=== PATIENT | female | born 1935 | race Caucasian/White ===

== ENCOUNTER 2017-03-26 18:10 | Emergency (ER) | payer MEDICARE ==
--- NOTE | 2017-03-26 18:28 | ERPHSYRPT ---
- History of Present Illness Time Seen by Provider: 03/26/17 18:24 Historian: patient Physician History: 82-year-old white female with history of high blood pressure, gallbladder disease, hernia, pancreatitis arrives with complaints that off-and-on of pain in the substernal region described as a feeling of nervousness and shortness of breath in that area symptoms for 2 weeks off and on also nausea and diaphoresis this has been intermittent she states that has been going on today since around 11 to 12:00 Patient does state she's been short of breath. Patient was brought from the assisted by medics she was given aspirin and nitroglycerin. Past medical history includes high blood pressure, gallbladder disease, pancreatitis, patient apparently with a a ruptured bowel and had a colostomy with revision. Past surgical history includes cholecystectomy stone removed from biliary doctor, colostomy with revision. Timing/Duration: week(s) (symptoms for 2-3 weeks symptoms today since 11 or 12: 00) Activities at Onset: none Quality: other (patient states she just feels "nervous" in the substernal areabecome short of breath) Location: substernal Chest Pain Radiation: no radiation Severity of Pain-Max: moderate Associated Symptoms: nausea, diaphoresis, No vomiting, No palpitations, No heartburn, No abdominal pain, No cough, No hurts to breathe, No chills, No fever , No fatigue, No weakness, No swelling/lump in chest, No syncope, No rash, No headache, No dizziness, No edema, No back pain Nitro Today/Relief: 0.4 mg x 3 Aspirin Treatment Today: 81 mg x 4, provided by EMS Allergies/Adverse Reactions: acetaminophen [From Darvocet-N 100] Allergy (Verified 03/26/17 18:35) propoxyphene napsylate [From Darvocet-N 100] Allergy (Verified 03/26/17 18:35) Home Medications: Aspirin [[place] Aspirin] 81 mg PO DAILY 03/26/17 [History] Cephalexin Mh 500 mg [Keflex 500 mg] 500 mg PO TID 03/26/17 [History] Docusate Sodium 100 mg [Colace 100 MG] 100 mg PO BID 03/26/17 [History] Estradiol [Vagifem] 10 mcg VG DAILY 03/26/17 [History] Hydrochlorothiazide 12.5 mg PO BID 03/26/17 [History] Metoprolol Tartrate 25 mg [Lopressor 25MG Tab] 25 mg PO DAILY 03/26/17 [ History] Omeprazole 20 MG [Prilosec 20 mg] 20 mg PO DAILY 03/26/17 [History] Potassium Chloride 10 Meq Tab* [Klor Con 10 MEQ] 10 meq PO DAILY 03/26/17 [ History] Prednisone 12.5 mg PO DAILY 03/26/17 [History] Rivaroxaban [Xarelto] 15 mg PO BID 03/26/17 [History] Hx Tetanus, Diphtheria Vaccination/Date Given: No Hx Influenza Vaccination/Date Given: Yes (2013) Hx Pneumococcal Vaccination/Date Given: No - Review of Systems Constitutional: No Fever, No Chills Eyes: No Symptoms Ears, Nose, & Throat: No Symptoms Respiratory: Dyspnea, No Cough, No Cyanosis, No Dyspnea on Exertion (HERNANDEZ), No Stridor, No Wheezing Cardiac: Chest Pain, No Edema, No Palpitations, No Syncope, No Orthopnea Abdominal/Gastrointestinal: Nausea, No Abdominal Pain, No Vomiting, No Diarrhea , No Constipation, No Hematemesis, No Hematochezia, No Melena, No Dysphagia, No Appetite Changes Genitourinary Symptoms: No Dysuria Musculoskeletal: No Back Pain, No Neck Pain Skin: No Rash Neurological: No Dizziness, No Focal Weakness, No Sensory Changes Psychological: No Symptoms Endocrine: No Symptoms All Other Systems: Reviewed and Negative - Past Medical History Pertinent Past Medical History: Yes Cardiac History: Hypertension GI Medical History: Gallbladder Disease, Hernia, Pancreatitis Psycho-Social History: Anxiety - Past Surgical History Past Surgical History: Yes Gastrointestinal: Cholecystectomy Female Surgical History: Section Other Surgical History: STONE REMOVED FROM DUCT - Social History Smoking Status: Former smoker Exposure to second hand smoke: No Drug Use: none Patient Lives Alone: Yes - Physical Exam General Appearance: no apparent distress, alert Eye Exam: PERRL/EOMI, eyes nml inspection Ears, Nose, Throat Exam: normal ENT inspection, moist mucous membranes Neck Exam: normal inspection, non-tender, supple, full range of motion Respiratory Exam: normal breath sounds, lungs clear, No respiratory distress Cardiovascular Exam: regular rate/rhythm, normal heart sounds Gastrointestinal/Abdomen Exam: soft, No tenderness, No mass Back Exam: normal inspection, No CVA tenderness, No vertebral tenderness Extremity Exam: normal inspection, normal range of motion Neurologic Exam: alert, oriented x 3, cooperative, normal mood/affect, sensation nml, No motor deficits Skin Exam: normal color (is documented in the back and off foay with), warm, dry SpO2 Interpretation: normal (this is a never EKG [id number] - Course Nursing assessment & vital signs reviewed: Yes EKG Interpreted by Me: RATE (100 bpm), Sinus Rhythm, NORMAL AXIS, Other (EKG, normal sinus rhythm 100 bpm, normal axis, no acute ST or T wave changes noted compared to July) - Radiology Exams Chest X-ray Interpretation: Interpreted by me, Negative, Other (no acute disease process) Ordered Tests: Active Orders 24 hr Category Date Time Status Plant Electrical Engineer STAT Care 03/26/17 18:29 Active EKG-ER Only STAT Care 03/26/17 18:29 Active IV Insertion STAT Care 03/26/17 18:29 Active IV Insertion-2nd Peripheral STAT Care 03/26/17 20:53 Active Oxygen-ED Only NASAL CANNULA 2 lpm Care 03/26/17 18:29 Active CHEST 1 VIEW (PORTABLE) Stat Exams 03/26/17 18:29 Taken AMYLASE Stat Lab 03/26/17 18:45 Completed CBC W DIFF Stat Lab 03/26/17 18:45 Completed CMP Stat Lab 03/26/17 18:45 Completed D-DIMER QUANTITATION Stat Lab 03/26/17 18:45 Completed LIPASE Stat Lab 03/26/17 18:45 Completed NT PRO BNP Stat Lab 03/26/17 18:45 Completed PROTIME WITH INR Stat Lab 03/26/17 18:45 Completed PTT Stat Lab 03/26/17 18:45 Completed TROPONIN Q3H Lab 03/26/17 18:45 Completed TROPONIN Q3H Lab 03/26/17 21:30 Ordered TROPONIN Q3H Lab 03/27/17 00:30 Ordered TROPONIN Q3H Lab 03/27/17 03:30 Ordered TROPONIN Q3H Lab 03/27/17 06:30 Ordered Medication Summary Generic Name Dose Route Start Last Admin Trade Name Freq PRN Reason Stop Dose Admin Sodium Chloride 1,000 mls @ 100 mls/hr 03/26/17 20:45 03/26/17 20:51 Sodium Chloride 0.9% 1000 Ml IV 04/25/17 20:44 100 mls/hr .Q10H LEI Administration Lab/Rad Data: Laboratory Result Diagrams 03/26/17 18:45 03/26/17 18:45 Laboratory Results 03/26/17 03/26/17 03/26/17 Range/Units 18:45 18:45 18:45 WBC (4.0-10.5) K/mm3 RBC (4.1-5.4) M/mm3 Hgb (12.0-16.0) gm/dl Hct (35-47) % MCV (78-100) fl MCH (26-32) pg MCHC (32-36) g/dl RDW (11.5-14.0) % Plt Count (150-450) K/mm3 MPV (6-9.5) fl Gran % (36.0-66.0) % Lymphocytes % (24.0-44.0) % Monocytes % (0.0-12.0) % Eosinophils % (0.00-5.0) % Basophils % (0.0-0.4) % Basophils # (0-0.4) INR (0.8-3.0) APTT (25.3-37.0) SECONDS D-Dimer (0.00-0.49) mg/L Sodium (136-145) mEq/L Potassium (3.5-5.1) mEq/L Chloride (98-107) mEq/L Carbon Dioxide (21-32) mEq/L Anion Gap (5-15) MEQ/L BUN (9-20) mg/dL Creatinine (0.55-1.30) mg/dl Estimated GFR ML/MIN Glucose (70-110) MG/DL Calcium (8.5-10.1) mg/dL Total Bilirubin (0.2-1.0) mg/dL AST (15-37) U/L ALT (12-78) U/L Alkaline Phosphatase (46-116) U/L Troponin I (0.000-0.056) ng/ml NT-Pro-B Natriuret Pep (0-450) pg/ml Serum Total Protein (6.4-8.2) gm/dL Albumin (3.4-5.0) g/dL Amylase (25-115) U/L Lipase (73-393) U/L ABO Group O Rh Factor POSITIVE Antibody Screen NEGATIVE (NEGATIVE) Crossmatch COMPATIBLE COMPATIBLE (COMPATIBLE) 03/26/17 03/26/17 03/26/17 Range/Units 18:45 18:45 18:45 WBC (4.0-10.5) K/mm3 RBC (4.1-5.4) M/mm3 Hgb (12.0-16.0) gm/dl Hct (35-47) % MCV (78-100) fl MCH (26-32) pg MCHC (32-36) g/dl RDW (11.5-14.0) % Plt Count (150-450) K/mm3 MPV (6-9.5) fl Gran % (36.0-66.0) % Lymphocytes % (24.0-44.0) % Monocytes % (0.0-12.0) % Eosinophils % (0.00-5.0) % Basophils % (0.0-0.4) % Basophils # (0-0.4) INR (0.8-3.0) APTT (25.3-37.0) SECONDS D-Dimer (0.00-0.49) mg/L Sodium (136-145) mEq/L Potassium (3.5-5.1) mEq/L Chloride (98-107) mEq/L Carbon Dioxide (21-32) mEq/L Anion Gap (5-15) MEQ/L BUN (9-20) mg/dL Creatinine (0.55-1.30) mg/dl Estimated GFR ML/MIN Glucose (70-110) MG/DL Calcium (8.5-10.1) mg/dL Total Bilirubin (0.2-1.0) mg/dL AST (15-37) U/L ALT (12-78) U/L Alkaline Phosphatase (46-116) U/L Troponin I < 0.017 (0.000-0.056) ng/ml NT-Pro-B Natriuret Pep (0-450) pg/ml Serum Total Protein (6.4-8.2) gm/dL Albumin (3.4-5.0) g/dL Amylase (25-115) U/L Lipase (73-393) U/L ABO Group Rh Factor Antibody Screen (NEGATIVE) Crossmatch COMPATIBLE COMPATIBLE (COMPATIBLE) 03/26/17 03/26/17 03/26/17 Range/Units 18:45 18:45 18:45 WBC 15.5 H (4.0-10.5) K/mm3 RBC 1.78 L* (4.1-5.4) M/mm3 Hgb 5.2 L* (12.0-16.0) gm/dl Hct 17.2 L (35-47) % MCV 96.6 (78-100) fl MCH 29.2 (26-32) pg MCHC 30.2 L (32-36) g/dl RDW 18.6 H (11.5-14.0) % Plt Count 349 (150-450) K/mm3 MPV 8.9 (6-9.5) fl Gran % 65.5 (36.0-66.0) % Lymphocytes % 25.7 (24.0-44.0) % Monocytes % 8.0 (0.0-12.0) % Eosinophils % 0.6 (0.00-5.0) % Basophils % 0.2 (0.0-0.4) % Basophils # 0.03 (0-0.4) INR 2.37 (0.8-3.0) APTT 37.9 H (25.3-37.0) SECONDS D-Dimer 0.266 (0.00-0.49) mg/L Sodium 139 (136-145) mEq/L Potassium 4.3 (3.5-5.1) mEq/L Chloride 102 (98-107) mEq/L Carbon Dioxide 28.6 (21-32) mEq/L Anion Gap 12.7 (5-15) MEQ/L BUN 35 H (9-20) mg/dL Creatinine 1.01 (0.55-1.30) mg/dl Estimated GFR 56 ML/MIN Glucose 150 H (70-110) MG/DL Calcium 8.2 L (8.5-10.1) mg/dL Total Bilirubin 0.2 (0.2-1.0) mg/dL AST 7 L (15-37) U/L ALT 10 L (12-78) U/L Alkaline Phosphatase 65 (46-116) U/L Troponin I (0.000-0.056) ng/ml NT-Pro-B Natriuret Pep 546 H (0-450) pg/ml Serum Total Protein 5.9 L (6.4-8.2) gm/dL Albumin 2.7 L (3.4-5.0) g/dL Amylase 75 (25-115) U/L Lipase 150 (73-393) U/L ABO Group Rh Factor Antibody Screen (NEGATIVE) Crossmatch (COMPATIBLE) - Progress Progress: improved Air Movement: fair Progress Note: 03/26/17 20:22 Patient with a hemoglobin of 5.2 hematocrit 17.2 INR 2.37 Patient is on Xaralto. Patient with melanotic stools with some visible blood Vitals are stable Troponin within normal limits EKG no acute changes BNP 546 chest x-ray no acute changes Case is discussed with Dr. richardson Will contact [facility] hospitalist for possible transfer patient did have her colonoscopy revision done at [facility]. Have ordered type and crossmatch for 4 units for the patient. However possibly Will transfer. Awaiting call from hospitalist at [place] 03/26/17 20:54 Case is discussed with Dr. Spear at [facility] (hospitalist) Patient is being given a unit of packed red cells Will given a second unit He has accepted the patient for transfer however he wishes that the patient be discussed with the medical hospital sales prior to transfer. awaiting callback from medical hospital [facility]. 03/26/17 21:[address] case with [address]. Plummer at the [facility] (medical hospital sales) he is okay to have the patient transferred to [facility] he states he will see her tomorrow. [facility] one call states they're arranging a bed Will go ahead and plan to transfer. 03/26/17 21:27 Patient feeling better with blood transfusion. Patient currently without chest pain. 03/26/17 21:29 - Departure Time of Disposition: 21:26 Departure Disposition: Transfer ([facility] Dr Spear) Clinical Impression: Chest pain Qualifiers: Chest pain type: unspecified Qualified Code(s): R07.9 - Chest pain, unspecified GI bleed Qualifiers: GI bleed type/associated pathology: unspecified gastrointestinal hemorrhage type Qualified Code(s): K92.2 - Gastrointestinal hemorrhage, unspecified Anemia Qualifiers: Anemia type: unspecified type Qualified Code(s): D64.9 - Anemia, unspecified Condition: Fair Critical Care Time: No Referrals: ALAN TOMAS [Primary Care Provider] -
[2017-03-26 19:06] LABS: INR 2.37 (0.8-3.0); PROTIME 25.9 SECONDS (9.95-12.35)
[2017-03-26 19:07] LABS: BASOPHIL % 0.2 % (0.0-0.4); Eosinophil % 0.6 % (0.00-5.0); Granulocytes % 65.5 % (36.0-66.0); Lymphocytes % 25.7 % (24.0-44.0); Mean Cell Volume 96.6 fl (78-100); Mean Corpuscular Hemoglobin 29.2 pg (26-32); Mean Platelet Volume 8.9 fl (6-9.5); Platelet Count 349 K/mm3 (150-450); Red Cell Distribution Width 18.6 % (11.5-14.0); White Blood Count 15.5 K/mm3 (4.0-10.5)
[2017-03-26 19:09] LABS: PTT 37.9 SECONDS (25.3-37.0); Red Blood Count 1.78 M/mm3 (4.1-5.4)
[2017-03-26 19:26] LABS: ALBUMIN 2.7 g/dL (3.4-5.0); ANION GAP 12.7 MEQ/L (5-15); BILIRUBIN,TOTAL 0.2 mg/dL (0.2-1.0); Carbon Dioxide 28.6 mEq/L (21-32); Potassium 4.3 mEq/L (3.5-5.1); Total Protein 5.9 gm/dL (6.4-8.2)
[2017-03-26] MEDS ORDERED: Sodium Chloride 0.9% 1000 ML 1,000 ML ONE (20:43)
[2017-03-26] MEDS ORDERED: Sodium Chloride 0.9% 1000 ML 1,000 ML IV SCH (20:45)
[2017-03-26 20:54] VITALS: O2SAT 99
--- NOTE | 2017-03-26 21:44 | XRAY ---
Indication: Chest tightness and short of breath. Comparison: August 12, 2015. Portable chest unchanged again with minimal bibasilar atelectasis/scarring, calcified granulomas, and focal eventration of the right hemidiaphragm. Heart and mediastinal structures within normal limits. No new/acute findings.
[2017-03-26 21:54] VITALS: BP 125/61; PULSE 78
== END 2017-03-26 22:39 | disposition short-term general hospital (02) ==
LOC: ED 18:10
DX: R07.89 Other chest pain (principal); K92.2 Gastrointestinal hemorrhage, unspecified; D64.9 Anemia, unspecified; I10 Essential (primary) hypertension; K86.1 Other chronic pancreatitis; R06.02 Shortness of breath; R11.0 Nausea; R61 Generalized hyperhidrosis; Z79.899 Other long term (current) drug therapy
CPT/HCPCS: 93041; 96365; 99285; 36000; 96360; 96361; 93005; 82150; 85610; 85730; 36415; 82272; 83690; 83880; 85379; 85025; 80053; 84484; 86850; 86900; 86901; 86922; 71010; P9016; 36430